=== PATIENT | male | born 2000 | race Caucasian/White ===

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

== ENCOUNTER 2023-11-10 14:27 | Emergency (ER) | payer BC, MEDICAID ==
[~2023-11-10] VITALS: Ht 180.3 cm; Wt 68.2 kg
[2023-11-10] MEDS ORDERED: CIPR2.5D21 LEFTEYE (15:28)
[2023-11-10 15:49] VITALS: BP 117/76; PULSE 61; RESP 15; TEMP 98.6; O2SAT 99
== END 2023-11-10 15:50 | disposition home or self-care (01) ==
LOC: ER 14:27
DX: H10.89 Other conjunctivitis (principal)
CPT/HCPCS: 99283

== ENCOUNTER 2024-07-29 00:25 | Emergency (ER) | payer MEDICAID ==
[~2024-07-29] VITALS: Ht 180.3 cm; Wt 69.0 kg
[2024-07-29] MEDS ORDERED: lamoTRIgine 100mg tablet PO ONE (00:45)
[2024-07-29] MEDS ORDERED: LAMO200T51 PO (00:46)
[2024-07-29 00:59] LABS: BASOPHILS % (AUTO) 0.5 % (0-1); EOSINOPHILS # (AUTO) 0.4 X10'3 (0-0.9); EOSINOPHILS % (AUTO) 4.1 % (0-6); HEMATOCRIT 46.5 % (42.0-52.0); HEMOGLOBIN 15.8 g/dl (14.0-17.9); LYMPHOCYTES % (AUTO) 32.3 % (21-51); MEAN CORPUSCULAR HEMOGLOBIN 29.9 PG (27.0-31.0); MEAN CORPUSCULAR HGB CONC 34.1 g/dL (33.0-36.5); MEAN CORPUSCULAR VOLUME 87.6 FL (78-98); MEAN PLATELET VOLUME 7.5 FL (7.4-10.4); MONOCYTES % (AUTO) 11.1 % (2-12); NEUTROPHILS # (AUTO) 4.9 X10'3 (1.8-7.7); PLATELET COUNT 321 X10'3 (140-440); RED CELL DISTRIBUTION WIDTH 13.4 % (11.5-14.5); WHITE BLOOD COUNT 9.3 X10'3 (4.5-11.0)
[2024-07-29 01:07] LABS: ALBUMIN 3.7 G/DL (3.4-5.0); ANION GAP 18 (8-16); BLOOD UREA NITROGEN 14 MG/DL (7-18); BUN/CREATININE RATIO 13.1 (10.0-20.0); CALCIUM 8.9 MG/DL (8.5-10.1); CHLORIDE 103 MMOL/L (99-107); CREATININE 1.07 MG/DL (0.60-1.10); GLUCOSE 78 MG/DL (70-104); SODIUM 142 MMOL/L (135-145); TOTAL CARBON DIOXIDE 21.5 MMOL/L (24-32); eCRCL 107 ML/MIN; eGFR 87 ML/MIN
[2024-07-29 01:31] LABS: BILIRUBIN,URINE NEGATIVE (Neg); CLARITY,URINE CLEAR (Clear); COLOR,URINE YELLOW (Yellow); GLUCOSE, URINE NEGATIVE (Neg); KETONES,URINE NEGATIVE (Neg); LEUKOCYTE ESTERASE ,URINE NEGATIVE (Neg); NITRITES, URINE NEGATIVE (Neg); OCCULT BLOOD,URINE NEGATIVE (Neg); PROTEIN,URINE TRACE mg/dl (Neg); UROBILINOGEN,URINE 0.2 E.U/dL (0.2-1.0)
[2024-07-29 01:34] VITALS: BP 131/89; PULSE 110; RESP 19; TEMP 98.9; O2SAT 98
[2024-07-29 01:36] LABS: UA COLLECTION TYPE URINAL
[2024-07-29 01:37] LABS: BACTERIA,URINE NONE SEEN /HPF (Neg); RBC,URINE NONE SEEN /HPF (0-2); WBC,URINE 0-4 /HPF (0-4)
[2024-07-29 01:38] LABS: MUCUS STRANDS MODERATE /LPF (Neg); SQUAMOUS EPITHELIAL CELL,UR NONE SEEN /LPF (FEW)
[2024-07-29 01:39] LABS: SPERM FEW /HPF (NEGATIVE)
== END 2024-07-29 01:36 | disposition home or self-care (01) ==
LOC: ER 00:27
DX: G40.909 Epilepsy, unspecified, not intractable, without status epilepticus (principal); Z79.899 Other long term (current) drug therapy
CPT/HCPCS: 36415; 80048; 81001; 85025; 99283; 99284

== ENCOUNTER 2024-07-29 03:48 | Emergency (ER) | payer MEDICAID ==
[~2024-07-29] VITALS: Ht 180.3 cm; Wt 69.0 kg
[~2024-07-29 03:48] MED LIST: LAMO200T51 PO
[2024-07-29 03:49] VITALS: BP 128/88; PULSE 112; RESP 15; O2SAT 96
[2024-07-29] MEDS: LORazepam 1 MG tablet PO STA (04:04)
== END 2024-07-29 04:23 | disposition left against medical advice (07) ==
LOC: ER 03:49
DX: R56.9 Unspecified convulsions (principal); Z53.21 Procedure and treatment not carried out due to patient leaving prior to being seen by health care provider
CPT/HCPCS: 93005